=== PATIENT | female | born 1945 | race Caucasian/White ===

== ENCOUNTER → 2020-01-01 14:18 | Outpatient (CLI) | payer MEDICARE, OTHER, SELFPAY ==
--- NOTE | ~2020-01-01 | MM_ITS ---
EXAMINATION: MM screening taov BI w milton HISTORY: Screening mammogram TECHNIQUE: Craniocaudal and mediolateral oblique 3-D tomosynthesis images were obtained and synthetic 2-D images were generated. CAD analysis was submitted and interpreted. COMPARISON: No prior mammogram is available for comparison at this institution. BREAST PARENCHYMAL COMPOSITION: There are scattered areas of fibroglandular density. FINDINGS: There are scattered benign calcifications bilaterally. There is no evidence of suspicious m ass, calcification, or architectural distortion to suggest malignancy in either breast. There has bee n no suspicious interval change. IMPRESSION: 1. No mammographic evidence of malignancy. 2. Recommend routine screening mammography in one year. BI-RADS Category 2: Benign finding(s). Reviewed, dictated and finalized at location A.
== END ==
PROVIDERS: PCP Family Medicine; Visit Provider Obstetrics & Gynecology
DX: Z12.31 Encounter for screening mammogram for malignant neoplasm of breast (principal)
CPT/HCPCS: 77063; 77067

== ENCOUNTER → 2020-11-25 09:12 | Outpatient (CLI) | payer MEDICARE, OTHER, SELFPAY ==
[2020-11-25 22:41] LABS: SARS-CoV-2 RNA PCR Negative
== END ==
PROVIDERS: PCP Family Medicine; Visit Provider Family Medicine
DX: R68.89 Other general symptoms and signs (principal); Z20.822 Contact with and (suspected) exposure to COVID-19
CPT/HCPCS: C9803; U0003; U0005

== ENCOUNTER → 2021-02-16 10:18 | Outpatient (CLI) | payer MEDICARE, OTHER, SELFPAY ==
--- NOTE | ~2021-02-16 | MM_ITS ---
EXAMINATION: MM screening tavo BI w milton HISTORY: Screening TECHNIQUE: Craniocaudal and mediolateral oblique 3-D tomosynthesis images were obtained and synthetic 2-D images were generated. CAD analysis was submitted and interpreted. COMPARISON: Comparison to multiple prior studies sequentially, with oldest reviewed study dated 11/2013. BREAST PARENCHYMAL COMPOSITION: There are scattered areas of fibroglandular density. FINDINGS: There is no evidence of suspicious mass, calcification, or architectural distortion to sugg est malignancy in either breast. There has been no suspicious interval change. IMPRESSION: 1. No mammographic evidence of malignancy. 2. Recommend routine screening mammography in one year. BI-RADS Category 1: Negative Reviewed, dictated and finalized at location A. R RETORT
== END ==
PROVIDERS: PCP Nurse Practitioner Family; Visit Provider Obstetrics & Gynecology
DX: Z12.31 Encounter for screening mammogram for malignant neoplasm of breast (principal)
CPT/HCPCS: 77063; 77067

== ENCOUNTER 2021-12-07 09:32 | Outpatient (CLI) | payer MEDICARE, OTHER, SELFPAY ==
[2021-12-07 19:58] LABS: Alanine Aminotransferase 20 U/L (6-35); Albumin Level 4.5 g/dL (3.5-5.1); Alkaline Phosphatase 86 U/L (38-126); Anion Gap 12 mmol/L (8-16); Aspartate Amino Transferase 60 U/L (14-36); Bilirubin,Total 0.5 mg/dL (0.2-1.3); Blood Urea Nitrogen 14 mg/dL (7-17); Calcium 9.3 mg/dL (8.4-10.2); Carbon Dioxide 27 mmol/L (22-30); Chloride 99 mmol/L (98-107); Cholesterol 203 mg/dL (0-200); Estimated Glomerular Filt Rate > 60; Glucose 87 mg/dL (65-110); HDL Direct 99 mg/dL; Potassium 4.3 mmol/L (3.4-5.0); Sodium 138 mmol/L (137-145); Triglycerides 56 mg/dL (<150)
[2021-12-07 20:09] LABS: LDL Cholesterol Direct 79 mg/dL
[2021-12-07 20:19] LABS: Basophils Absolute Auto 0.1 K/mm3 (0.0-0.1); Basophils Percent Auto 1.3 % (0.2-1.2); Eosinophils Absolute Auto 0.4 K/mm3 (0-0.3); Eosinophils Percent Auto 6.8 % (0-4.4); Hematocrit 38.1 % (37.0-47.0); Hemoglobin 12.4 g/dL (12.0-15.0); Immature Granulocyte Absolute 0.01 K/mm3 (0.00-0.031); Immature Granulocyte Percent A 0.2 % (0-0.5); Lymphocytes Percent Auto 34.9 % (18.3-44.2); Mean Corpuscular HGB Conc 32.5 g/dl (32-36); Mean Corpuscular Hemoglobin 31.2 pg (26-34); Mean Corpuscular Volume 95.7 fl (80-100); Mean Platelet Volume 10.2 fl (7.4-10.4); Monocytes Absolute Auto 0.8 K/mm3 (0.1-0.6); Monocytes Percent Auto 13.1 % (2.6-8.5); Neutrophils Absolute Auto 2.6 K/mm3 (1.3-6.7); Neutrophils Percent Auto 43.7 % (45.5-73.1); Platelet Count Result 221 k/mm3 (150-375); Red Blood Count 3.98 M/mm3 (4.2-5.4); Red Cell Distribution Width 13.1 % (11.5-14.5)
[2021-12-07 20:27] LABS: Vitamin D 25 Hydroxy 35.6 ng/mL
== END 2021-12-07 09:33 | disposition home or self-care (01) ==
LOC: ANHGOSHLAB 09:38
PROVIDERS: PCP Family Medicine; Visit Provider Nurse Practitioner Family
DX: I10 Essential (primary) hypertension (principal); E78.5 Hyperlipidemia, unspecified; E03.9 Hypothyroidism, unspecified; E55.9 Vitamin D deficiency, unspecified
CPT/HCPCS: 36415; 80053; 80061; 82306; 84443; 85025

== ENCOUNTER 2022-01-20 01:18 | Day surgery (SDC) | payer MEDICARE, OTHER, SELFPAY ==
[2022-01-11 14:18] VITALS: BMI 27.6
--- NOTE | 2022-01-19 14:43 | PM.HPGS ---
History of Present Illness History of Present Illness Consent: Risks, benefits, and alternatives have been discussed and questions answered. Patient agrees to proceed with procedure. Chief complaint: Hx of colon polyps Narrative: Ai Pisano is a 76 year old female Who was referred for colon cancer screening. She had 2 adenomatous polyps removed about 10 years ago. Her last exam 5 years ago was negative. Review of Systems Review of Systems: All systems reviewed & are unremarkable except as noted in HPI and below PMFSH Past Medical History Medical History Essential (primary) hypertension Hx of colonic polyp Hyperlipidemia LDL goal <100 Hypothyroidism (acquired) Vitamin D deficiency Surgical History Surgical History No history of previous surgery Family History Family History Father Hypertension Other Family history of coronary artery disease Social History Social History Smoking status: Never smoker Alcohol intake: current Drinks per week: 7 Substance use: never Substance use type: does not use Living arrangements: with family Additional living arrangements comments: Gender identity (if verbalized by the patient): Female Spiritual care concerns: No Meds Home Medications and Allergies Home Medications Medication Instructions Recorded Confirmed Type calcium carbonate 600 mg calcium 600 mg PO DAILY 11/27/19 01/11/22 History (1,500 mg) tablet (Calcium) lisinopril 10 mg tablet 10 mg PO DAILY #90 tabs 05/17/21 01/11/22 Rx simvastatin 20 mg tablet 20 mg PO QPM #90 tabs 10/13/21 01/11/22 Rx levothyroxine 50 mcg tablet 50 mcg PO DAILY #90 tabs 11/22/21 01/11/22 Rx Allergies Allergy/AdvReac Type Severity Reaction Status Date / Time No Known Allergies Allergy Verified 01/20/22 09:57 Exam Const: General: alert Orientation/consciousness: patient oriented x3 Resp: Auscultation: clear to auscultation bilaterally Cardio: Rhythm: regular rhythm GI: GI Palp: Yes Soft to palpation and No Tenderness to palpation present (GI) Neuro: General: patient oriented x3 Assessment and Plan Assessment and plan (1) Colon cancer screening: Code(s): Z12.11 - Encounter for screening for malignant neoplasm of colon Status: Acute Assessment and Plan: Colonoscopy with possible biopsy or polypectomy or cautery or injection of substances.
[2022-01-20 09:58] VITALS: BP 126/84; PULSE 70; RESP 18; TEMP 36.3; O2SAT 100
[2022-01-20] MEDS: LACTATED RINGERS 1,000 ML 150 ML IV CONT (10:09)
--- NOTE | 2022-01-20 10:59 | WPDANESEPPF ---
Anes - Initial Pre Proc Eval Procedure: Operation Date: 01/20/22 11:15 Proposed Procedures p Screening Colonoscopy - Sriram Schmidt MD Date/Time: 01/20/22 10:59 Surgeon: Sriram Schmidt MD Pre Op Diagnosis: Hx of colon polyps Patient Data Age: 76 Gender: F Height: 1.63 m Weight: 74.6 kg Last Vital Signs Temp 97.4 F L 01/20/22 09:58 Pulse 70 01/20/22 09:58 Resp 18 01/20/22 09:58 BP 126/84 01/20/22 09:58 Pulse Ox 100 01/20/22 09:58 O2 Del Method Room Air 01/20/22 09:58 Allergies Allergy/AdvReac Type Severity Reaction Status Date / Time No Known Allergies Allergy Verified 01/20/22 09:57 Home Medications Medication Instructions Recorded Confirmed Type calcium carbonate 600 mg calcium 600 mg PO DAILY 11/27/19 01/11/22 History (1,500 mg) tablet (Calcium) lisinopril 10 mg tablet 10 mg PO DAILY #90 tabs 05/17/21 01/11/22 Rx simvastatin 20 mg tablet 20 mg PO QPM #90 tabs 10/13/21 01/11/22 Rx levothyroxine 50 mcg tablet 50 mcg PO DAILY #90 tabs 11/22/21 01/11/22 Rx Patient hx anesthesia problems: none Family hx anesthesia problems: none Results Review: All pre-operative results and documents have been reviewed as part of the pre-operative evaluation. [facility] Past Medical History Medical History (Updated 01/19/22 @ 14:43 by Sriram Schmidt MD) Essential (primary) hypertension Hx of colonic polyp Hyperlipidemia LDL goal <100 Hypothyroidism (acquired) Vitamin D deficiency Surgical History Surgical History No history of previous surgery Family History Family History Father Hypertension Other Family history of coronary artery disease Social History Social History Smoking status: Never smoker Alcohol intake: current Drinks per week: 7 Substance use: never Substance use type: does not use Living arrangements: with family Additional living arrangements comments: Gender identity (if verbalized by the patient): Female Spiritual care concerns: No Anes - Eval Final PreProcedure Day of Procedure 01/20/22 10:59 Patient weight: normal Heart: regular rate and rhythm Lungs: clear to auscultation Airway: Mallampati scale class II Neurological: alert and oriented Last oral intake: >/= 8 hours ASA classification: II Emergent: no Anesthetic plan: proceed Anesthesia type and monitoring: general GIVS and standard monitoring Results Review: All pre-operative results and documents have been reviewed as part of the pre-operative evaluation. Informed Consent: The patient's anesthetic plan and its attendant risks and benefits were discussed with the patient/family/POA. Questions were solicited and answers provided to the satisfaction of the patient/family/POA.
[2022-01-20 11:21] VITALS: BP 128/92; PULSE 67; RESP 18; O2SAT 100
[2022-01-20 11:31] VITALS: BP 108/68; PULSE 63; RESP 17; O2SAT 100
[2022-01-20 11:41] VITALS: BP 118/74; PULSE 69; RESP 21; O2SAT 100
== END 2022-01-20 11:53 | disposition home or self-care (01) ==
PROVIDERS: PCP Family Medicine; Visit Provider Internal Medicine Gastroenterology
PROC: 0DJD8ZZ Inspection of Lower Intestinal Tract, Via Natural or Artificial Opening Endoscopic (ICD-10-PCS; CPT 45378; principal; 2022-01-20 11:15)
DX: Z12.11 Encounter for screening for malignant neoplasm of colon (principal); K57.30 Diverticulosis of large intestine without perforation or abscess without bleeding; Z86.010 Personal history of colon polyps; I10 Essential (primary) hypertension; E78.5 Hyperlipidemia, unspecified; E03.9 Hypothyroidism, unspecified; E55.9 Vitamin D deficiency, unspecified
CPT/HCPCS: G0105; J2704; J7120

== ENCOUNTER → 2022-04-05 10:39 | Outpatient (CLI) | payer MEDICARE, OTHER, SELFPAY ==
--- NOTE | ~2022-04-05 | MM_ITS ---
EXAMINATION: MM screening tavo BI w milton HISTORY: Screening mammogram TECHNIQUE: Craniocaudal and mediolateral oblique 3-D tomosynthesis images were obtained and synthetic 2-D images were generated. CAD analysis was submitted and interpreted. COMPARISON: 02/16/2021, 01/01/2020, 10/23/2018 bilateral screening mammogram examinations BREAST PARENCHYMAL COMPOSITION: There are scattered areas of fibroglandular density. FINDINGS: Scattered bilateral benign calcifications. There is no evidence of suspicious mass, calcifi cation, or architectural distortion to suggest malignancy in either breast. There has been no suspici ous interval change. IMPRESSION: 1. No mammographic evidence of malignancy. 2. Recommend routine screening mammography in one year. BI-RADS Category 2: Benign finding(s). Reviewed, dictated and finalized at location A. TRUCTION MGR
== END ==
PROVIDERS: PCP Family Medicine; Visit Provider Obstetrics & Gynecology
DX: Z12.31 Encounter for screening mammogram for malignant neoplasm of breast (principal)
CPT/HCPCS: 77063; 77067

== ENCOUNTER 2022-05-18 07:57 | Day surgery (SDC) | payer MEDICARE, OTHER, SELFPAY ==
[2022-05-16 12:16] VITALS: BMI 28.3
--- NOTE | 2022-05-18 07:26 | WPDHPUPDATE1 ---
History and Physical Update Update Date/Time: 05/18/22 07:26 History and Physical has been reviewed, including an updated exam of the patient. There are NO changes in the patient's condition. Risks, benefits, and alternatives have been discussed and questions answered. Patient agrees to proceed with procedure.
--- NOTE | 2022-05-18 08:34 | P.PNAN_ITS ---
Anes - Initial Pre Proc Eval Procedure: Operation Date: 05/18/22 09:10 Proposed Procedures p Cataract Extraction with Lens Implant-Left Eye - Jay Parra MD Date/Time: 05/18/22 08:34 Surgeon: Jay Parra MD Pre Op Diagnosis: Cataract Left Eye Patient Data Age: 77 Gender: F Height: 1.63 m Weight: 75 kg Allergies Allergy/AdvReac Type Severity Reaction Status Date / Time No Known Allergies Allergy Verified 05/16/22 12:22 Home Medications Medication Instructions Recorded Confirmed Type calcium carbonate 600 mg calcium 600 mg PO DAILY 11/27/19 05/16/22 History (1,500 mg) tablet (Calcium) simvastatin 20 mg tablet 20 mg PO QPM #90 tabs 10/13/21 05/16/22 Rx lisinopril 10 mg tablet 10 mg PO DAILY #90 tabs 02/09/22 05/16/22 Rx levothyroxine 50 mcg tablet 50 mcg PO DAILY #30 tabs 05/16/22 Rx Patient hx anesthesia problems: none Family hx anesthesia problems: none Results Review: All pre-operative results and documents have been reviewed as part of the pre- operative evaluation. [facility] Past Medical History Medical History Essential (primary) hypertension Hx of colonic polyp Hyperlipidemia LDL goal <100 Hypothyroidism (acquired) Vitamin D deficiency Surgical History Surgical History No history of previous surgery Family History Family History Father Hypertension Other Family history of coronary artery disease Social History Social History Smoking status: Never smoker Second hand tobacco smoke exposure: No Alcohol intake: current Drinks per week: 7 Alcohol use details: 1 drink per night Substance use: never Substance use type: does not use Living arrangements: with family Additional living arrangements comments: Occupation/Education: retired Gender identity (if verbalized by the patient): Female Spiritual care concerns: No Anes - Eval Final PreProcedure Day of Procedure 05/18/22 08:34 Patient weight: overweight Heart: regular rate and rhythm Lungs: clear to auscultation Airway: Mallampati scale class II Neurological: alert and oriented Last oral intake: >/= 8 hours ASA classification: II Emergent: no Anesthetic plan: proceed Anesthesia type and monitoring: monitored anesthesia care and standard monitoring Results Review: All pre-operative results and documents have been reviewed as part of the pre- operative evaluation. Informed Consent: The patient's anesthetic plan and its attendant risks and benefits were discussed with the patient/family/POA. Questions were solicited and answers provided to the satisfaction of the patient/family/POA.
[2022-05-18] MEDS: OFLOXACIN 0.3% OPHTH SOLN 5 ML BTL 1 DROP AFFCTD EYE (08:35)
[2022-05-18] MEDS: TETRACAINE HCL 0.5% OPHTH SOLN 4 ML BTL 1 DROP AFFCTD EYE ×3 (08:35→08:45)
[2022-05-18] MEDS: LIDOCAINE HCL 2% JELLY 5 ML TUBE 1 APPLIC AFFCTD EYE (09:28)
[2022-05-18] MEDS: NEOMYCIN/POLYMYXIN/DEXAMETH OP OINT 3.5 GM TUBE 1 APPLIC AFFCTD EYE (09:40)
[2022-05-18] MEDS: HOME MEDICATION 1 EACH AFFCTD EYE (09:40)
[2022-05-18] MEDS: LIDOCAINE HCL 1% PF INJ 5 ML VIAL 1 ML INTRAOCULA (09:40)
[2022-05-18 09:52] VITALS: BP 127/71; PULSE 63; RESP 15; O2SAT 100
[2022-05-18 09:56] VITALS: BP 126/63; PULSE 72; RESP 20; TEMP 36.8; O2SAT 100
[2022-05-18] MEDS: acetaZOLAMIDE TAB 250 MG TABLET PO (09:59)
--- NOTE | 2022-05-18 11:38 | W.PM.PROC2 ---
Procedure Note - Detailed Date of Procedure 05/18/22 Pre-op Diagnosis Cataract Left Eye Post-op Diagnosis Same Procedure Performed Cataract Extraction (by Phacoemulsification) and lntraocular Lens Implant Surgeon Jay Parra MD Anesthesia MAC Description of Procedure The eye was anesthetized with topical 0.75% bupivacaine. After intravenous sedation and placement of monitors, the patient was prepped and draped in the usual sterile manner. A lid speculum was placed. A paracentesis was made, and preservative free 1% lidocaine was instilled in the anterior chamber. The anterior chamber was then filled with Viscoat viscoelastic. A dl keratome was used to create the wound. Continuous tear anterior capsulotomy was performed. The lens was hydro dissected before being removed with phacoemulsification. The remaining lenticular cortex was removed with aspiration. The capsular bag was polished and filled with viscoelastic material. An intraocular lens was chosen, inspected, irrigated and placed within the capsular bag where it was seen to be centered and stable. The viscoelastic material was aspirated. The wound was closed and found to be watertight. Ciloxan drops were placed in the eye. The speculum was removed. A Reddy shield was applied. The patient tolerated the procedure well and left the operating room in satisfactory condition. Implants See chart Complications None Condition Stable Disposition Same day
--- NOTE | 2022-05-18 11:46 | WPDANESPN ---
Anes - Prog Note Post-Op Date/Time: 05/18/22 11:46 Cardiovascular status: normal Respiratory status: normal Airway patency: baseline Mental status: baseline Post-Op hydration status: normal Vital Signs: Last Vital Signs Temp 36.8 C 05/18/22 09:56 Pulse 72 05/18/22 09:56 Resp 20 05/18/22 09:56 BP 126/63 05/18/22 09:56 Pulse Ox 100 05/18/22 09:56 O2 Del Method Room Air 05/18/22 09:56 Pain Score (VAS): 0 Post-procedural complaints: none Patient Feedback: Patient satisfied with anesthetic care.
== END 2022-05-18 10:12 | disposition home or self-care (01) ==
PROVIDERS: PCP Family Medicine; Visit Provider Student in an Organized Health Care Education/Training Program
PROC: (CPT 66983; principal; 2022-05-18 09:10)
DX: H25.12 Age-related nuclear cataract, left eye (principal)
CPT/HCPCS: 66984

== ENCOUNTER 2022-06-10 08:45 | Outpatient (CLI) | payer MEDICARE, OTHER, SELFPAY ==
[2022-06-10 18:40] LABS: Basophils Absolute Auto 0.1 K/mm3 (0.0-0.1); Basophils Percent Auto 1.1 % (0.2-1.2); Eosinophils Absolute Auto 0.6 K/mm3 (0-0.3); Eosinophils Percent Auto 9.5 % (0-4.4); Hematocrit 37.7 % (37.0-47.0); Hemoglobin 12.4 g/dL (12.0-15.0); Immature Granulocyte Absolute 0.02 K/mm3 (0.00-0.031); Immature Granulocyte Percent A 0.3 % (0-0.5); Lymphocytes Absolute Auto 2.11 K/mm3 (0.9-3.2); Lymphocytes Percent Auto 33.4 % (18.3-44.2); Mean Corpuscular HGB Conc 32.9 g/dl (32-36); Mean Corpuscular Hemoglobin 31.9 pg (26-34); Mean Corpuscular Volume 96.9 fl (80-100); Mean Platelet Volume 9.9 fl (7.4-10.4); Monocytes Absolute Auto 0.8 K/mm3 (0.1-0.6); Neutrophils Absolute Auto 2.8 K/mm3 (1.3-6.7); Neutrophils Percent Auto 43.7 % (45.5-73.1); Platelet Count Result 231 k/mm3 (150-375); Red Blood Count 3.89 M/mm3 (4.2-5.4); Red Cell Distribution Width 13.2 % (11.5-14.5); White Blood Count 6.3 K/mm3 (4.5-10.0)
[2022-06-10 21:32] LABS: LDL Cholesterol Direct 66 mg/dL
[2022-06-10 21:33] LABS: Alanine Aminotransferase 20 U/L (6-35); Albumin Level 4.7 g/dL (3.5-5.1); Alkaline Phosphatase 89 U/L (38-126); Anion Gap 11 mmol/L (8-16); Aspartate Amino Transferase 28 U/L (14-36); Bilirubin,Total 0.4 mg/dL (0.2-1.3); Blood Urea Nitrogen 23 mg/dL (7-17); Calcium 9.7 mg/dL (8.4-10.2); Carbon Dioxide 25 mmol/L (22-30); Chloride 102 mmol/L (98-107); Cholesterol 212 mg/dL (0-200); Estimated Glomerular Filt Rate > 60; Glucose 72 mg/dL (65-110); Potassium 5.1 mmol/L (3.4-5.0); Sodium 138 mmol/L (137-145); Triglycerides 80 mg/dL (<150)
[2022-06-10 21:53] LABS: HDL Direct 118 mg/dL
== END 2022-06-10 08:46 | disposition home or self-care (01) ==
LOC: ANHGOSHLAB 08:46
PROVIDERS: PCP Family Medicine; Visit Provider Nurse Practitioner Family
DX: E78.5 Hyperlipidemia, unspecified (principal); I10 Essential (primary) hypertension; E03.9 Hypothyroidism, unspecified
CPT/HCPCS: 36415; 80053; 80061; 84443; 85025

== ENCOUNTER 2022-12-15 08:32 | Outpatient (CLI) | payer MEDICARE, OTHER, SELFPAY ==
[2022-12-15 18:33] LABS: Basophils Absolute Auto 0.1 K/mm3 (0.0-0.1); Eosinophils Absolute Auto 0.4 K/mm3 (0-0.3); Eosinophils Percent Auto 8.5 % (0-4.4); Hematocrit 38.3 % (37.0-47.0); Hemoglobin 12.7 g/dL (12.0-15.0); Immature Granulocyte Absolute 0.02 K/mm3 (0.00-0.031); Immature Granulocyte Percent A 0.4 % (0-0.5); Lymphocytes Absolute Auto 1.62 K/mm3 (0.9-3.2); Lymphocytes Percent Auto 32.7 % (18.3-44.2); Mean Corpuscular HGB Conc 33.2 g/dl (32-36); Mean Corpuscular Hemoglobin 31.4 pg (26-34); Mean Corpuscular Volume 94.8 fl (80-100); Mean Platelet Volume 10.3 fl (7.4-10.4); Monocytes Absolute Auto 0.6 K/mm3 (0.1-0.6); Monocytes Percent Auto 12.1 % (2.6-8.5); Neutrophils Absolute Auto 2.2 K/mm3 (1.3-6.7); Neutrophils Percent Auto 45.3 % (45.5-73.1); Platelet Count Result 210 k/mm3 (150-375); Red Blood Count 4.04 M/mm3 (4.2-5.4); Red Cell Distribution Width 12.6 % (11.5-14.5)
[2022-12-15 18:43] LABS: Alanine Aminotransferase 19 U/L (6-35); Albumin Level 4.5 g/dL (3.5-5.1); Alkaline Phosphatase 80 U/L (38-126); Anion Gap 7 mmol/L (8-16); Aspartate Amino Transferase 37 U/L (14-36); Bilirubin,Total 0.7 mg/dL (0.2-1.3); Blood Urea Nitrogen 17 mg/dL (7-17); Calcium 9.2 mg/dL (8.4-10.2); Carbon Dioxide 29 mmol/L (22-30); Chloride 98 mmol/L (98-107); Cholesterol 196 mg/dL (0-200); Estimated Glomerular Filt Rate > 60; Glucose 89 mg/dL (65-110); HDL Direct 103 mg/dL; Potassium 4.3 mmol/L (3.4-5.0); Sodium 134 mmol/L (137-145); Triglycerides 78 mg/dL (<150)
[2022-12-15 19:02] LABS: Vitamin D 25 Hydroxy 31.1 ng/mL
[2022-12-15 19:09] LABS: LDL Cholesterol Direct 73 mg/dL
[2022-12-15 19:49] LABS: Hemoglobin A1C 4.9 % (<5.7)
== END 2022-12-15 08:33 | disposition home or self-care (01) ==
PROVIDERS: PCP Family Medicine; Visit Provider Nurse Practitioner Family
DX: E78.5 Hyperlipidemia, unspecified (principal); Z13.21 Encounter for screening for nutritional disorder; I10 Essential (primary) hypertension; Z13.220 Encounter for screening for lipoid disorders; Z13.29 Encounter for screening for other suspected endocrine disorder; R73.03 Prediabetes
CPT/HCPCS: 36415; 80053; 80061; 82306; 83036; 84443; 85025

== ENCOUNTER 2023-06-22 08:28 | Outpatient (CLI) | payer MEDICARE, OTHER, SELFPAY ==
[2023-06-22 12:13] LABS: Basophils Absolute Auto 0.1 K/mm3 (0.0-0.1); Basophils Percent Auto 0.9 % (0.2-1.2); Eosinophils Absolute Auto 0.5 K/mm3 (0-0.3); Eosinophils Percent Auto 9.6 % (0-4.4); Hematocrit 38.6 % (37.0-47.0); Hemoglobin 12.6 g/dL (12.0-15.0); Immature Granulocyte Absolute 0.01 K/mm3 (0.00-0.031); Immature Granulocyte Percent A 0.2 % (0-0.5); Lymphocytes Absolute Auto 1.96 K/mm3 (0.9-3.2); Lymphocytes Percent Auto 36.2 % (18.3-44.2); Mean Corpuscular HGB Conc 32.6 g/dl (32-36); Mean Corpuscular Hemoglobin 31.4 pg (26-34); Mean Corpuscular Volume 96.3 fl (80-100); Mean Platelet Volume 10.2 fl (7.4-10.4); Monocytes Absolute Auto 0.7 K/mm3 (0.1-0.6); Monocytes Percent Auto 12.8 % (2.6-8.5); Neutrophils Absolute Auto 2.2 K/mm3 (1.3-6.7); Neutrophils Percent Auto 40.3 % (45.5-73.1); Platelet Count Result 220 k/mm3 (150-375); Red Blood Count 4.01 M/mm3 (4.2-5.4); Red Cell Distribution Width 13.4 % (11.5-14.5); White Blood Count 5.4 K/mm3 (4.5-10.0)
[2023-06-22 12:24] LABS: Alanine Aminotransferase 18 U/L (6-35); Albumin Level 4.5 g/dL (3.5-5.1); Alkaline Phosphatase 77 U/L (38-126); Anion Gap 5 mmol/L (4-12); Aspartate Amino Transferase 40 U/L (14-36); Bilirubin,Total 0.6 mg/dL (0.2-1.3); Blood Urea Nitrogen 16 mg/dL (7-17); Calcium 9.5 mg/dL (8.4-10.2); Carbon Dioxide 29 mmol/L (22-30); Chloride 102 mmol/L (98-107); Cholesterol 178 mg/dL (0-200); Estimated Glomerular Filt Rate > 60; Glucose 90 mg/dL (65-110); HDL Direct 95 mg/dL; Potassium 4.8 mmol/L (3.4-5.0); Sodium 136 mmol/L (137-145); Triglycerides 87 mg/dL (<150)
[2023-06-22 12:35] LABS: LDL Cholesterol Direct 77 mg/dL
== END 2023-06-22 08:29 | disposition home or self-care (01) ==
LOC: ANHGOSHLAB 08:29
PROVIDERS: PCP Family Medicine; Visit Provider Nurse Practitioner Family
DX: E78.5 Hyperlipidemia, unspecified (principal); E03.9 Hypothyroidism, unspecified; I10 Essential (primary) hypertension; M85.80 Other specified disorders of bone density and structure, unspecified site; R74.01 Elevation of levels of liver transaminase levels; Z13.29 Encounter for screening for other suspected endocrine disorder; R73.03 Prediabetes
CPT/HCPCS: 36415; 80053; 80061; 83036; 84443; 85025

== ENCOUNTER 2023-08-09 14:11 | Outpatient (CLI) | payer MEDICARE, OTHER, SELFPAY ==
--- NOTE | ~2023-08-09 | MM_ITS ---
EXAMINATION: MM screening atvo BI w milton HISTORY: Screening TECHNIQUE: Craniocaudal and mediolateral oblique 3-D tomosynthesis images were obtained and synthetic 2-D images were generated. CAD analysis was submitted and interpreted. COMPARISON: Comparison to multiple prior studies sequentially, with oldest reviewed study dated 06/08. BREAST PARENCHYMAL COMPOSITION: Not dense: There are scattered areas of fibroglandular density. FINDINGS: There is no evidence of suspicious mass, calcification, or architectural distortion to sugg est malignancy in either breast. There has been no suspicious interval change. IMPRESSION: 1. No mammographic evidence of malignancy. 2. Recommend routine screening mammography in one year. BI-RADS Category 1: Negative Reviewed, dictated and finalized at location B.
== END 2023-08-09 14:12 ==
PROVIDERS: PCP Obstetrics & Gynecology; Visit Provider Nurse Practitioner Family
DX: Z12.31 Encounter for screening mammogram for malignant neoplasm of breast (principal)
CPT/HCPCS: 77063; 77067

== ENCOUNTER 2024-01-02 08:36 | Outpatient (CLI) | payer MEDICARE, OTHER, SELFPAY ==
[2024-01-02 13:08] LABS: Alanine Aminotransferase 22 U/L (6-35); Albumin Level 4.3 g/dL (3.5-5.1); Alkaline Phosphatase 71 U/L (38-126); Anion Gap 9 mmol/L (4-12); Aspartate Amino Transferase 44 U/L (14-36); Bilirubin,Total 0.6 mg/dL (0.2-1.3); Blood Urea Nitrogen 16 mg/dL (7-17); Calcium 9.3 mg/dL (8.4-10.2); Carbon Dioxide 27 mmol/L (22-30); Chloride 100 mmol/L (98-107); Cholesterol 187 mg/dL (0-200); Estimated Glomerular Filt Rate > 60; Glucose 89 mg/dL (65-110); HDL Direct 101 mg/dL; Potassium 4.7 mmol/L (3.4-5.0); Sodium 136 mmol/L (137-145); Triglycerides 70 mg/dL (<150)
[2024-01-02 13:20] LABS: LDL Cholesterol Direct 60 mg/dL
[2024-01-02 13:27] LABS: Basophils Percent Auto 0.7 % (0.2-1.2); Eosinophils Absolute Auto 0.4 K/mm3 (0-0.3); Eosinophils Percent Auto 7.9 % (0-4.4); Hematocrit 35.8 % (37.0-47.0); Hemoglobin 11.8 g/dL (12.0-15.0); Immature Granulocyte Absolute 0.02 K/mm3 (0.00-0.031); Immature Granulocyte Percent A 0.4 % (0-0.5); Lymphocytes Absolute Auto 2.02 K/mm3 (0.9-3.2); Lymphocytes Percent Auto 36.1 % (18.3-44.2); Mean Corpuscular Hemoglobin 32.3 pg (26-34); Mean Corpuscular Volume 98.1 fl (80-100); Mean Platelet Volume 10.4 fl (7.4-10.4); Monocytes Absolute Auto 0.7 K/mm3 (0.1-0.6); Neutrophils Absolute Auto 2.4 K/mm3 (1.3-6.7); Neutrophils Percent Auto 42.9 % (45.5-73.1); Platelet Count Result 204 k/mm3 (150-375); Red Blood Count 3.65 M/mm3 (4.2-5.4); Red Cell Distribution Width 12.9 % (11.5-14.5); White Blood Count 5.6 K/mm3 (4.5-10.0)
[2024-01-02 14:48] LABS: Free T4 Free Thyroxine 1.58 ng/mL (0.78-2.19); Vitamin D 25 Hydroxy 31.9 ng/mL
== END 2024-01-02 08:37 | disposition home or self-care (01) ==
LOC: ANHGOSHLAB 08:38
PROVIDERS: PCP Family Medicine; Visit Provider Nurse Practitioner Family
DX: E55.9 Vitamin D deficiency, unspecified (principal); E03.9 Hypothyroidism, unspecified; I10 Essential (primary) hypertension
CPT/HCPCS: 36415; 80053; 80061; 82306; 84439; 84443; 85025

== ENCOUNTER 2024-01-08 10:11 | Outpatient (CLI) | payer MEDICARE, OTHER, SELFPAY ==
[2024-01-08 14:36] LABS: Iron 81 ug/dL (37-170)
[2024-01-08 14:45] LABS: Percent Iron Saturation 32 % (20-50)
== END 2024-01-08 10:12 | disposition home or self-care (01) ==
LOC: ANHGOSHLAB 10:13
PROVIDERS: PCP Family Medicine; Visit Provider Nurse Practitioner Family
DX: D64.9 Anemia, unspecified (principal)
CPT/HCPCS: 36415; 82607; 82728; 83540; 83550

== ENCOUNTER 2024-04-01 10:02 | Outpatient (CLI) | payer MEDICARE, OTHER, SELFPAY ==
[2024-04-01 13:22] LABS: Hematocrit 38.8 % (37.0-47.0); Hemoglobin 12.5 g/dL (12.0-15.0); Mean Corpuscular HGB Conc 32.2 g/dl (32-36); Mean Corpuscular Hemoglobin 31.3 pg (26-34); Mean Platelet Volume 10.1 fl (7.4-10.4); Platelet Count Result 243 k/mm3 (150-375); Red Cell Distribution Width 12.6 % (11.5-14.5); White Blood Count 5.9 K/mm3 (4.5-10.0)
== END 2024-04-01 10:03 | disposition home or self-care (01) ==
LOC: ANHGOSHLAB 10:03
PROVIDERS: PCP Family Medicine; Visit Provider Nurse Practitioner Family
DX: D64.9 Anemia, unspecified (principal)
CPT/HCPCS: 36415; 82728; 85027

== ENCOUNTER 2024-07-02 14:25 | Outpatient (CLI) | payer MEDICARE, OTHER, SELFPAY ==
[2024-07-02 14:38] LABS: Basophils Absolute Auto 0.1 K/mm3 (0.0-0.1); Basophils Percent Auto 0.9 % (0.2-1.2); Eosinophils Absolute Auto 0.4 K/mm3 (0-0.3); Hematocrit 36.4 % (37.0-47.0); Hemoglobin 12.3 g/dL (12.0-15.0); Immature Granulocyte Absolute 0.03 K/mm3 (0.00-0.031); Immature Granulocyte Percent A 0.4 % (0-0.5); Lymphocytes Absolute Auto 2.45 K/mm3 (0.9-3.2); Lymphocytes Percent Auto 32.2 % (18.3-44.2); Mean Corpuscular HGB Conc 33.8 g/dl (32-36); Mean Corpuscular Hemoglobin 31.5 pg (26-34); Mean Corpuscular Volume 93.1 fl (80-100); Mean Platelet Volume 9.4 fl (7.4-10.4); Monocytes Absolute Auto 0.9 K/mm3 (0.1-0.6); Monocytes Percent Auto 11.7 % (2.6-8.5); Neutrophils Absolute Auto 3.8 K/mm3 (1.3-6.7); Neutrophils Percent Auto 49.8 % (45.5-73.1); Platelet Count Result 211 k/mm3 (150-375); Red Blood Count 3.91 M/mm3 (4.2-5.4); Red Cell Distribution Width 13.2 % (11.5-14.5); White Blood Count 7.6 K/mm3 (4.5-10.0)
[2024-07-02 16:30] LABS: Iron 112 ug/dL (37-170)
[2024-07-02 16:33] LABS: Alanine Aminotransferase 26 U/L (6-35); Albumin Level 4.8 g/dL (3.5-5.1); Alkaline Phosphatase 90 U/L (38-126); Anion Gap 8 mmol/L (4-12); Aspartate Amino Transferase 49 U/L (14-36); Bilirubin,Total 0.6 mg/dL (0.2-1.3); Blood Urea Nitrogen 13 mg/dL (7-17); Calcium 9.4 mg/dL (8.4-10.2); Carbon Dioxide 29 mmol/L (22-30); Chloride 98 mmol/L (98-107); Estimated Glomerular Filt Rate > 60; Glucose 100 mg/dL (65-110); Potassium 4.3 mmol/L (3.4-5.0); Sodium 135 mmol/L (137-145)
--- OUTSIDE RECORDS SUMMARY | 2024-07-02 16:40 | XMS_ITS | Clinical Summary ---
Author Organization [facility] Petre Address [address] [place] [address] Care Team Providers Care Plate Mill Mill Hand Name Role Phone Unavailable Primary Care Provider Unavailabl e Allergies No known active allergies Medications levothyroxine 50 mcg tablet Take 1 Tablet by mouth daily. 06/15/2024 Active lisinopriL (PRINIVIL) 10 mg tablet Take 1 Tablet by mouth daily. 06/15/2024 Active simvastatin (ZOCOR) 20 mg tablet Take 1 Tablet by mouth daily. 04/10/2024 Active Cholecalciferol, Vitamin D3, 50 mcg (2,000 unit) Capsule Take 50 mcg by mouth daily. Active calcium-vitamin D3-vitamin K (VIACTIV) 500 mg-100 unit -40 mcg Tablet, Chewable Take 1 Tablet by mouth daily. Active Encounters Date Type Department Care Team Description 07/02/2024 1:30 PM CDT Office Visit [facility] Oncology and Hematology - [address] [place] [address] Rajni Santos MD Elevated liver enzymes (Primary Dx); Anemia, chronic disease 07/02/2024 Orders Only [facility] [address] [place] [address] Mychal Wilcox MD from Last 3 Months Family History Medical History Relation Name Comments No Known Problems Brother Diabetes Child 1 No Known Problems Child 2 No Known Problems Father No Known Problems Mother No Known Problems Sister 1 No Known Problems Sister 2 No Known Problems Sister 3 No Known Problems Sister 4 Breast Cancer Sister 5 Relation Name Status Comments Brother Alive Child 1 Alive Child 2 Alive Father Mother Sister 1 Alive Sister 2 Alive Sister 3 Alive Sister 4 Alive Sister 5 Alive Social History Tobacco Use Types Packs/Day Years Used Date Smoking Tobacco: Never Smokeless Tobacco: Never Alcohol Use Standard Drinks/Week Comments Yes 0 (1 standard drink = 0.6 oz pur e alcohol) Everyday Comments Unknown Sex and Gender Information Value Date Recorded Sex Assigned at Not on file 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 Gender Identity Not on file Sexual Orientation Not on file Last Filed Vital Signs Vital Sign Reading Time Taken Comments Blood Pressure 138/79 07/02/2024 1:22 PM CDT Pulse 71 07/02/2024 1:20 PM CDT Temperature 36.2 C (97.1 F) 07/02/2024 1:20 PM CDT Respiratory Rate 16 07/02/2024 1:20 PM CDT Oxygen Saturation 98% 07/02/2024 1:20 PM CDT Inhaled Oxygen Concentration - - Weight 77.5 kg (170 lb 12.8 oz) 025 1:20 PM CDT Height 162.6 cm (5' 4 ) 07/02/2024 1:20 PM CDT Body Mass Index 29.32 07/02/2024 1:20 PM CDT Plan of Treatment Upcoming Encounters Date Type Department Care Team (Late st Contact Info) Description 08/27/2024 10:00 AM CDT Office Visit [facility] Hematology - [address] [facility] [address] [place] [address] Mychal Wilcox MD [address] [facility] [address] [place] [address] Health Maintenance Due Date Last Done Comments DTAP/TDAP/TD VACCINES (1 - Tdap) 1964 Traditional Medicare (ACO) Annual Wellness Visit 03/07 PNEUMOCOCCAL VACCINE 50+ YEARS (1 of 1 - PCV) 03/07/19 96 ZOSTER VACCINE (1 of 2) 1996 OSTEOPOROSIS SCREENING 2011 RSV VACCINE (60+ or ) (1 - 1-dose 75+ series) 2021 INFLUENZA VACCINE (#1) 2023 Procedures Procedure Name Priority Date/Time Associated Diagnosis Comments CBC MIXED CELL DIFFERENTIAL Routine 07/02/2024 3:55 PM CDT from Last 3 Months Results * CBC MIXED CELL DIFFERENTIAL (07/02/2024 3:55 PM CDT) Blood Mychal Wilcox MD HEMATOLOGY ORDERABLES Final Res ult from Last 3 Months Insurance MEDICARE PART A AND B [facility]
--- OUTSIDE RECORDS SUMMARY | 2024-07-02 16:40 | XMS_ITS | Encounter Summary ---
Author Organization [facility] [employer] [facility] Address [address] [place] [address] Care Team Providers Care Cognos Name Role Phone Unavailable Primary Care Provider Unavailabl e Encounter Details Date Type Department Care Team ([facility] Contact Info) Description 07/02/2024 Orders Only [facility] Oncology [facility] [address] [place] [address] Mychal Wilcox MD [facility] [address] [place] [phone] Social History Tobacco Use Types Packs/Day Years Used Date Smoking Tobacco: Never Smokeless Tobacco: Never Alcohol Use Standard Drinks/Week Comments Yes 0 (1 standard drink = 0.6 oz pur e alcohol) Everyday Comments Unknown Sex and Gender Information Value Date Recorded Sex Assigned at Not on file 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 Gender Identity Not on file Sexual Orientation Not on file documented as of this encounter Plan of Treatment Upcoming Encounters Date Type Department Care Team (Late Contact Info) Description 08/27/2024 10:00 AM CDT Office Visit [facility] Oncology [facility] [address] [place] [address] Mychal Wilcox MD [address] [place], [place] [address]Life With [facility] [address] [place] [phone] documented as of this encounter Procedures Procedure Name Priority Date/Time Associated Diagnosis Comments CBC MIXED CELL DIFFERENTIAL Routine 07/02/2024 3:55 PM CDT documented in this encounter Results * CBC MIXED CELL DIFFERENTIAL (07/02/2024 3:55 PM CDT) Blood us Mychal Wilcox MD HEMATOLOGY ORDERABLES Final Res ult documented in this encounter Visit Diagnoses Not on filedocumented in this encounter
--- OUTSIDE RECORDS SUMMARY | 2024-07-02 16:40 | XMS_ITS | Encounter Summary ---
Author Organization [facility] JEANNE Meneses [facility] Address [address] [place] [address] Care Team Providers Care Line Assembler Name Role Phone Unavailable Primary Care Provider Unavailabl e Reason for Referral * CT Scan (Routine) - Open Specialty Diagnoses / Procedures Referred By Annabel torres Referred To Contact Diagnoses Elevated liver enzymes Procedures CT ABDOMEN PELVIS W CONTRAST Rajni Santos MD [address] [place] [address] Phone: tel: fax: Referral ID Status Reason Start Date Expiration Date Visits Re quested Visits Authorized [id number] Open 07/02/2024 08/02/2025 1 1 Encounter Details Date Type Department Care Team (Late st Contact Info) Description 07/02/2024 1:30 PM CDT Office Visit [facility] Oncology and Hematology - [address] [place] [address] Rajni Santos MD [address] [place] [address] Elevated liver enzymes (Primary Dx); Anemia, chronic disease Social History Tobacco Use Types Packs/Day Years Used Date Smoking Tobacco: Never Smokeless Tobacco: Never Alcohol Use Standard Drinks/Week Comments Yes 0 (1 standard drink = 0.6 oz pur e alcohol) Everyday Comments Unknown Sex and Gender Information Value Date Recorded Sex Assigned at Not on file 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 Gender Identity Not on file Sexual Orientation Not on file documented as of this encounter Last Filed Vital Signs Vital Sign Reading Time Taken Comments Blood Pressure 138/79 07/02/2024 1:22 PM CDT Pulse 71 07/02/2024 1:20 PM CDT Temperature 36.2 C (97.1 F) 07/02/2024 1:20 PM CDT Respiratory Rate 16 07/02/2024 1:20 PM CDT Oxygen Saturation 98% 07/02/2024 1:20 PM CDT Inhaled Oxygen Concentration - - Weight 77.5 kg (170 lb 12.8 oz) 07/02/2024 1:20 PM CDT Height 162.6 cm (5' 4 ) 07/02/2024 1:20 PM CDT Body Mass Index 29.32 07/02/2024 1:20 PM CDT documented in this encounter Plan of Treatment Upcoming Encounters Date Type Department Care Team (Late st Contact Info) Description 08/27/2024 10:00 AM CDT Office Visit [facility] Oncology and Hematology - [place] [address] [place] [address] [address] [place] [phone] Mychal Wilcox MD [address] [facility] [address] [place] [address] Scheduled Orders Name Type Priority Associated Diagnoses Orde r Schedule COMPREHENSIVE METABOLIC PANEL Lab Routine Anemia, chronic disease Expected: 07/02/2024, Expires: 07/02/2025 CBC WITH DIFFERENTIAL Lab Routine Anemia, chronic disease Expected: 07/02/2024, Expires: 07/02/2025 IRON, TIBC, AND PERCENT SATURATION Lab Routine Anemia, chronic disease Expected: 07/02/2024, Expires: 07/02/2025 FERRITIN Lab Routine Anemia, chronic disease Expected: 07/02/2024, Expires: 07/02/2025 VITAMIN B12 AND FOLATE Lab Routine Anemia, chronic disease Expected: 07/02/2024, Expires: 07/02/2025 CT ABDOMEN PELVIS W CONTRAST Imaging Routine Elevated liver enzymes Expected: 07/02/2024, Expires: 07/02/2025 documented as of this encounter Visit Diagnoses Diagnosis Elevated liver enzymes- Primary Nonspecific elevation of levels of transaminase or lactic acid dehydrogenase (LDH) Anemia, chronic disease Anemia of other chronic disease documented in this encounter
[2024-07-02 16:43] LABS: Percent Iron Saturation 39 % (20-50)
[2024-07-02 17:41] LABS: Folic Acid 12.7 ng/mL (2.76->20)
== END 2024-07-02 14:26 | disposition home or self-care (01) ==
LOC: ANHLAB 14:26
PROVIDERS: PCP Family Medicine; Visit Provider Internal Medicine Hematology & Oncology
DX: D64.9 Anemia, unspecified (principal)
CPT/HCPCS: 36415; 80053; 82607; 82728; 82746; 83540; 83550; 85025

== ENCOUNTER 2024-08-13 10:27 | Outpatient (CLI) | payer MEDICARE, OTHER, SELFPAY ==
--- NOTE | ~2024-08-13 | MM_ITS ---
PROCEDURE: MM SCREENING [facility] BI W PATRICIA INDICATION: Asymptomatic, referred for screening mammogram COMPARISON: 08/09/2023 through 01/01/2020 TECHNIQUE: Digital breast tomosynthesis craniocaudal and mediolateral oblique views of Both breasts w ere obtained with computer-aided detection to assist in interpretation of the study. FINDINGS: The breasts are almost entirely fatty. No focal dominant mass, architectural distortion, or suspicious microcalcifications are identified. There are no features to suggest malignancy. IMPRESSION: No evidence of malignancy in the breast. Recommend continued screening mammography BI-RADS 1, NEGATIVE Reviewed, dictated and finalized at location B.
== END 2024-08-13 10:28 | disposition home or self-care (01) ==
PROVIDERS: PCP Obstetrics & Gynecology; Visit Provider Nurse Practitioner Family
DX: Z12.31 Encounter for screening mammogram for malignant neoplasm of breast (principal)
CPT/HCPCS: 77063; 77067

== ENCOUNTER 2024-08-20 08:51 | Outpatient (CLI) | payer MEDICARE, OTHER, SELFPAY ==
--- NOTE | ~2024-08-20 | CT_ITS ---
CT of the Abdomen and Pelvis: Indication: Elevated liver enzymes Technique: 2.5 mm axial scans were obtained through the abdomen and pelvis following intravenous adm inistration of 100 cc of Omnipaque 350. Dose reduction technique was used on this scan by utilizing a utomated exposure control and iterative reconstruction technique. The dose-length product (DLP) was 4 32.39 mGy-cm. Findings: Scans through the lung bases are unremarkable. Possible fatty infiltration of liver. The spleen, pancreas, gallbladder, adrenals and kidneys are wit hin normal limits. No evidence of aortic aneurysm. No lymphadenopathy. No bowel obstruction or bowel wall thickening. There is no evidence to suggest acute appendicitis. Images through the pelvis were performed. Urinary bladder unremarkable. No pelvic mass seen. No ascit es. Impression: Possible mild fatty infiltration of liver. Reviewed, dictated and finalized at location . Impression: Possible mild fatty infiltration of liver.
--- OUTSIDE RECORDS SUMMARY | 2024-08-20 09:15 | XMS_ITS | Clinical Summary ---
Author Organization [facility] Aftab bucio Peter Address [address] [place] [address] Care Team Providers Care Baker Pastry Name Role Phone Unavailable Primary Care Provider [...] Take 1 Tablet by mouth daily. Active Active Problems No known active problems Encounters Date Type Department Care Team Description 08/01/2024 External Device Data STL ABSTRACTION Provider, Abstract 07/31/2024 External Device Data STL ABSTRACTION Provider, Abstract 07/30/2024 External Device Data STL ABSTRACTION Provider, Abstract 07/09/2024 External Device Data STL ABSTRACTION Provider, Abstract 07/09/2024 External Device Data STL ABSTRACTION Provider, Abstract 07/09/2024 External Device Data STL ABSTRACTION Provider, Abstract 07/03/2024 Orders Only [facility] Oncology and Hematology [facility] [address] [place] [address] Mychal Wilcox MD 07/02/2024 1:30 PM CDT Office Visit [facility] Oncology and Hematology [facility] [address] [place] [phone] Rajni Santos MD Elevated liver enzymes (Primary Dx); Anemia, chronic disease 07/02/2024 Orders Only [facility] Oncology and Hematology - [place] [address] [place] [address] Mychal Wilcox MD from Last [...] on file 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 Gender Identity Not on file Sexual [...] 1:20 PM CDT Height 162.6 cm (5' 4) 07/02/2024 1:20 PM CDT Body Mass Index 29.32 07/02/2024 1:20 PM CDT Plan of Treatment Upcoming Encounters Date Type Department Care Team (Late st Contact Info) Description 08/27/2024 10:00 AM CDT Office Visit [facility] Oncology and Hematology - [place] [address] [place] [phone] Mychal Wilcox MD [address] [facility] [address] [place] [address] Health Maintenance Due Date Last Done Comments DTAP/TDAP/TD VACCINES (1 - Tdap) 1965 PNEUMOCOCCAL VACCINE 50+ YEARS (1 of 1 - PCV) 03/07/19 96 ZOSTER VACCINE (1 of 2) 1996 OSTEOPOROSIS SCREENING 2011 RSV VACCINE (60+ or ) (1 - 1-dose 75+ series) 2021 INFLUENZA VACCINE (#1) 2023 Procedures Procedure Name Priority Date/Time Associated Diagnosis Comments CBC MIXED CELL DIFFERENTIAL Routine 07/02/2024 3:55 PM CDT COMPREHENSIVE METABOLIC PANEL Routine 07/02/2024 9:09 AM CDT from Last 3 Months Results * CBC MIXED CELL DIFFERENTIAL (07/02/2024 3:55 PM CDT) Blood Mychal Wilcox MD HEMATOLOGY ORDERABLES Final Res ult * COMPREHENSIVE METABOLIC PANEL (07/02/2024 9:09 AM CDT) Blood us Mychal Wilcox MD CHEMISTRY ORDERABLES Final Resu lt from Last [address] [place] [address] MEDICARE PART A AND B [facility]
[2024-08-20 09:24] LABS: Estimated Glomerular Filt Rate > 60
== END 2024-08-20 08:52 | disposition home or self-care (01) ==
PROVIDERS: PCP Family Medicine; Visit Provider Internal Medicine
DX: R74.8 Abnormal levels of other serum enzymes (principal)
CPT/HCPCS: 74177; Q9967

== ENCOUNTER 2024-08-27 10:23 | Outpatient (CLI) | payer MEDICARE, OTHER, SELFPAY ==
[2024-08-27 10:58] LABS: Hematocrit 36.4 % (37.0-47.0); Hemoglobin 12.5 g/dL (12.0-15.0); Mean Corpuscular HGB Conc 34.3 g/dl (32-36); Mean Corpuscular Hemoglobin 31.2 pg (26-34); Mean Corpuscular Volume 90.8 fl (80-100); Mean Platelet Volume 9.5 fl (7.4-10.4); Platelet Count Result 229 k/mm3 (150-375); Red Blood Count 4.01 M/mm3 (4.2-5.4); Red Cell Distribution Width 11.9 % (11.5-14.5)
--- OUTSIDE RECORDS SUMMARY | 2024-08-27 11:35 | XMS_ITS | Clinical Summary ---
[facility] Address [address] [place] [address] Care Team Providers Care Reading Interventionist Name Role Phone Trang Sevilla MD Primary Care Provider Allergies No known active allergies Medications levothyroxine [...] Encounters Date Type Department Care Team Description 08/27/2024 10:00 AM CDT Office Visit [facility] Oncology and Hematology - [place] [address] [facility] [address] [place] [address] Mychal Wilcox MD Iron overload (Primary Dx) 08/01/2024 External Device Data STL ABSTRACTION Provider, Abstract 07/31/2024 External Device Data STL ABSTRACTION Provider, Abstract 07/30/2024 External Device Data STL ABSTRACTION Provider, Abstract 07/09/2024 External Device Data STL ABSTRACTION Provider, Abstract 07/09/2024 External Device Data STL ABSTRACTION Provider, Abstract 07/09/2024 External Device Data STL ABSTRACTION Provider, Abstract 07/03/2024 Orders Only [facility] Oncology and Hematology - [place] [address] [place] [address] Mychal Wilcox MD 07/02/2024 1:30 PM CDT Office Visit [facility] Oncology and Hematology - [place] [address] [place] [address] Rajni Santos MD Elevated liver enzymes (Primary Dx); Anemia, chronic disease 07/02/2024 Orders Only [facility] Oncology and Hematology - [place] [address] [place] [phone] Mychal Wilcox MD from Last 3 Months [...] Date Smoking Tobacco: Never Smokeless Tobacco: Never Tobacco Cessation:Counseling Given: Not Answered Alcohol Use Standard Drinks/Week Comments Yes 0 (1 standard drink = 0.6 oz pur e alcohol) Everyday Comments Unknown Sex and Gender Information Value Date Recorded Sex Assigned at Not on file 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 Gender Identity Not on file Sexual Orientation Not on file Last Filed Vital Signs Vital Sign Reading Time Taken Comments Blood Pressure 129/72 08/27/2024 9:31 AM CDT Pulse 75 08/27/2024 9:31 AM CDT Temperature 36.4 C (97.5 F) 08/27/2024 9:31 AM CDT Respiratory Rate 15 08/27/2024 9:31 AM CDT Oxygen Saturation 96% 08/27/2024 9:31 AM CDT Inhaled Oxygen Concentration - - Weight 72.6 kg (160 lb) 08/27/2024 9:31 AM CDT Height 162.6 cm (5' 4) 07/02/2024 1:20 PM CDT Body Mass Index 27.46 07/02/2024 1:20 PM CDT Plan of Treatment Upcoming Encounters Date Type Department Care Team (Late st Contact Info) Description 09/10/2024 4:30 PM CDT Telephone Check Up [facility] Oncology and Hematology - [place] [address] [facility] [address] [place] [address] Mychal Wilcox MD [address] [facility] [address] [place] [address] Health Maintenance Due Date Last [...] METABOLIC PANEL (07/02/2024 9:09 AM CDT) Blood Mychal Wilcox MD CHEMISTRY ORDERABLES Final Resu lt from Last 3 Months Insurance MEDICARE PART A AND B [employer] [facility] [place] [facility] [place] [address] Care Teams Reading Interventionist Relationship Specialty Start Date End Date Trang Sevilla MD [facility] [place] [address] PCP - General Family Practice 08/27/24
--- OUTSIDE RECORDS SUMMARY | 2024-08-27 11:35 | XMS_ITS | Encounter Summary ---
Author Organization [facility] ELIANMicrotask [facility] Address [address] [place] [address] Care Team Providers Care Speed Belt Sander Name Role Phone Trang Sevilla MD Primary Care Provider Reason for Visit * Reason Comments Follow Up Encounter Details Date Type Department Care Team (Late st Contact Info) Description 08/27/2024 10:00 AM CDT Office Visit 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 Sex: female : 1945 DIAGNOSIS Elevated ferritin CURRENT TREATMENT Expectant TREATMENT HISTORY SUBJECTIVE Patient came into the office for follow-up visit. She denies any chest pain and shortness of breath. No bleeding and bruising. Weight and appetite stable. No other new complaints. Review of system Constitutional: Patient did not mention fevers, sweats, fatigue, malaise, weight loss HEENT: Patient did not mention sinus congestion, hearing or vision problems Respiratory: Patient did not mention cough, dyspnea, wheeze Cardiovascular: Patient did not mention chest pain, exertional chest pressure/discomfort, nausea, syncope, shortness of breath GI: Patient did not mention constipation, diarrhea, dsyphagia, reflux symptoms, vomiting, melena : Patient did not mention dysuria, frequency, incontinence, urgency Integumentary system: no lymphadenopathy, sweats, flushing Musculoskeletal: Patient not mention: myalgia, arthralgia Neurological: Patient did not mention blurry or disturbed vision, numbness/weakness, dizziness Skin: No lumps, bumps or rashes. Objective: Vital signs in last 24 hours: As per nursing note Exam: General appearance: alert, cooperative, no distress, appears stated age Head: normocephalic, without obvious abnormality, atraumatic Eyes: conjunctivae/corneas clear, EOM's intact Ears: normal external ear canals AU Nose: Nares normal. Septum midline. Mucosa normal. No drainage or sinus tenderness Throat: Lips, mucosa, and tongue normal. Teeth and gums normal Neck: supple, symmetrical, trachea midline. Lungs: clear to auscultation bilaterally Heart: regular rate and rhythm, S1, S2 normal, no murmur, click, rub or gallop Abdomen: soft, non-tender. Bowel sounds normal. No masses, No organomegaly Extremities: extremities normal, atraumatic, no cyanosis or edema Skin: Skin color, texture, turgor normal. No rashes or lesions Lymph nodes: No lymphadenopathy Neuro: No obvious focal deficit PATH LABS Labs from July 02 showed creatinine 0.7 B12 486 iron 112 saturation 39 ferritin 450 AST 49 WBC 7.6hemoglobin 12.3 platelet 211,000 @IMAGEIMP@ Assessment: Plan: There are no active problems to display for this patient. Elevated serum ferritin. Patient informed me that she used to drink 1 or 2 martini every night withthe dinner but discontinued in June when seen in the office. Labs showed elevated ferritin of 450.I will repeat labs including iron studies and CMP today and will call her back in 2 weeks. Based onthe repeat lab we will decide about hemochromatosis genetic testing. I recommended regular exerciseweight loss and abstinence from drinking. ? TOBACCO COUNSELING She is not a tobacco/nicotine user. 08/27/2024 Mychal Wilcox MD documented in this encounter Plan of Treatment Upcoming Encounters Date Type Department Care Team (Late st Contact Info) Description 09/10/2024 4:30 PM CDT Telephone Check Up [facility] Oncology and Hematology - [place] [address] [place] [address] [address] Mychal Wilcox MD [address] [facility] [address] [place] [address] Scheduled Orders Name Type Priority Associated Diagnoses Orde r Schedule CBC WITHOUT DIFFERENTIAL Lab Stat Iron overload Expected: 08/27/2024, Expires: 08/27/2025 COMPREHENSIVE METABOLIC PANEL Lab Stat Iron overload Expected: 08/27/2024, Expires: 08/27/2025 FERRITIN Lab Routine Iron overload Expected: 08/27/2024, Expires: 08/27/2025 IRON, TIBC, AND PERCENT SATURATION Lab Routine Iron overload Expected: 08/27/2024, Expires: 08/27/2025 documented as of this encounter Visit Diagnoses Diagnosis Iron overload- Primary Other disorders of iron metabolism documented in this encounter Care Teams Speed Belt Sander Relationship Specialty Start Date End Date Trang Sevilla MD [address] [facility] [place] [address] PCP - General Family Practice 08/27/24 documented as of this encounter
[2024-08-27 13:04] LABS: Iron 98 ug/dL (37-170)
[2024-08-27 13:06] LABS: Cholesterol 172 mg/dL (0-200); HDL Direct 87 mg/dL; Triglycerides 78 mg/dL (<150)
[2024-08-27 13:07] LABS: Alanine Aminotransferase 16 U/L (6-35); Albumin Level 4.5 g/dL (3.5-5.1); Alkaline Phosphatase 72 U/L (38-126); Anion Gap 9 mmol/L (4-12); Aspartate Amino Transferase 47 U/L (14-36); Bilirubin,Total 0.6 mg/dL (0.2-1.3); Blood Urea Nitrogen 12 mg/dL (7-17); Calcium 9.6 mg/dL (8.4-10.2); Carbon Dioxide 24 mmol/L (22-30); Chloride 100 mmol/L (98-107); Estimated Glomerular Filt Rate > 60; Glucose 96 mg/dL (65-110); Potassium 4.5 mmol/L (3.4-5.0); Sodium 133 mmol/L (137-145); Total Protein 7.8 g/dL (6.3-8.2)
[2024-08-27 13:14] LABS: Percent Iron Saturation 35 % (20-50)
[2024-08-27 13:17] LABS: LDL Cholesterol Direct 51 mg/dL
[2024-08-27 13:24] LABS: Free T4 Free Thyroxine 1.71 ng/dL (0.78-2.19)
[2024-08-27 13:46] LABS: Thyroid Stimulating Hormone 0.934 uIU/mL (0.465-4.680)
== END 2024-08-27 10:24 | disposition home or self-care (01) ==
PROVIDERS: PCP Family Medicine; Referring Provider Nurse Practitioner Family; Visit Provider Internal Medicine Hematology & Oncology
DX: E03.9 Hypothyroidism, unspecified (principal); E78.5 Hyperlipidemia, unspecified; E83.19 Other disorders of iron metabolism
CPT/HCPCS: 36415; 80053; 80061; 82306; 82728; 83540; 83550; 84439; 84443; 85027

== ENCOUNTER 2024-12-27 08:31 | Outpatient (CLI) | payer MEDICARE, OTHER, SELFPAY ==
--- OUTSIDE RECORDS SUMMARY | 2024-12-27 08:40 | XMS_ITS | Clinical Summary ---
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 Gender Identity Not on file Sexual Orientation [...] Care Team (Late st Contact Info) Description 01/06/2025 2:15 PM CDT Office Visit [facility] Oncology and Hematology - [place] [address] [facility] [address] [address] Mychal Wilcox MD [address] [facility] [address] [place] [address] Health Maintenance Due Date Last Done Comments DTAP/TDAP/TD VACCINES (1 - Tdap) 1965 PNEUMOCOCCAL VACCINE 50+ YEARS (1 of 1 - PCV) 03/07/19 96 ZOSTER VACCINE (1 of 2) 1996 OSTEOPOROSIS SCREENING 2011 RSV VACCINE (60+ or ) (1 - 1-dose 75+ series) 2021 INFLUENZA VACCINE (#1) 2024 Insurance MEDICARE PART A AND B [facility] [place] [address] Care Teams Helium Arc Welder Relationship Specialty Start Date End Date Trang Sevilla MD [address] [facility] [place] [address] PCP - General Family Practice 08/27/24
[2024-12-27 12:48] LABS: Hematocrit 36.0 % (37.0-47.0); Hemoglobin 11.6 g/dL (12.0-15.0); Immature Granulocyte Percent A 0.0 % (0-0.5); Lymphocytes Absolute Auto 2.08 K/mm3 (0.9-3.2); Mean Corpuscular HGB Conc 32.2 g/dl (32-36); Mean Corpuscular Hemoglobin 29.7 pg (26-34); Mean Corpuscular Volume 92.1 fl (80-100); Nucleated Red Blood Cells Absolute Auto 0.000 K/mm3 (0.0-0.012); Nucleated Red Blood Cells Perc 0.0 % (0.0-0.2); Platelet Count Result 234 k/mm3 (150-375); Red Blood Count 3.91 M/mm3 (4.2-5.4); White Blood Count 5.2 K/mm3 (4.5-10.0)
[2024-12-27 12:57] LABS: Iron 92 ug/dL (37-170)
[2024-12-27 13:05] LABS: Alanine Aminotransferase 12 U/L (6-35); Albumin Level 4.3 g/dL (3.5-5.1); Alkaline Phosphatase 73 U/L (38-126); Anion Gap 6 mmol/L (4-12); Aspartate Amino Transferase 42 U/L (14-36); Bilirubin,Total 0.5 mg/dL (0.2-1.3); Blood Urea Nitrogen 13 mg/dL (7-17); Calcium 9.5 mg/dL (8.4-10.2); Carbon Dioxide 27 mmol/L (22-30); Chloride 98 mmol/L (98-107); Estimated Glomerular Filt Rate > 60; Glucose 91 mg/dL (65-110); Potassium 4.9 mmol/L (3.4-5.0); Sodium 131 mmol/L (137-145); Total Protein 7.6 g/dL (6.3-8.2)
[2024-12-27 13:30] LABS: Percent Iron Saturation 37 % (20-50)
[2024-12-27 14:09] LABS: Ferritin 503.00 ng/mL (11.1-264)
== END 2024-12-27 08:32 | disposition home or self-care (01) ==
PROVIDERS: PCP Family Medicine; Visit Provider Internal Medicine Hematology & Oncology
DX: E83.19 Other disorders of iron metabolism (principal)
CPT/HCPCS: 36415; 80053; 82728; 83540; 83550; 85025

== ENCOUNTER 2025-01-06 14:42 | Outpatient (CLI) | payer MEDICARE, OTHER, SELFPAY ==
--- OUTSIDE RECORDS SUMMARY | 2025-01-06 14:15 | XMS_ITS | Encounter Summary ---
Author Organization [facility] ELIANKongZhong Gideon [facility] Address [address] [place] [address] Care Team Providers Care Case Advocate Name Role Phone Trang Sevilla MD Primary Care Provider Reason for Referral * Laboratory Services (Routine) - Open Specialty Diagnoses / Procedures Referred By Contac t Referred To Contact Diagnoses Iron overload Procedures HEMOCHROMATOSIS GENOTYPE Mychal Wilcox MD [address] [facility] [address] [place] [address] Phone: tel: fax: Referral ID Status Reason Start Date Expiration Date Visits Re quested Visits Authorized [id number] Open 01/06/2025 02/06/2026 1 1 Reason for Visit * Reason Comments Follow Up Encounter Details Date Type Department Care Team (Late st Contact Info) Description 01/06/2025 2:15 PM CDT Office Visit [facility] Oncology and Hematology - [place] [address] [facility] [address] [place] [address] Mychal Wilcox MD [facility] [address] [place] [address] Iron overload (Primary Dx); Anemia, chronic disease Social History Tobacco Use Types Packs/Day Years Used Date Smoking Tobacco: Never Smokeless Tobacco: Never Tobacco Cessation:Counseling Given: Not Answered Alcohol Use Standard Drinks/Week Comments Yes 0 (1 standard drink = 0.6 oz pur e alcohol) Everyday Comments Unknown Sex and Gender Information Value Date Recorded Sex Assigned at Not on file 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 Gender Identity Not on file Sexual Orientation Not on file documented as of this encounter Last Filed Vital Signs Vital Sign Reading Time Taken Comments Blood Pressure 139/71 01/06/2025 2:01 PM CDT Pulse 61 01/06/2025 2:01 PM CDT Temperature 36.1 C (96.9 F) 01/06/2025 2:01 PM CDT Respiratory Rate 15 01/06/2025 2:01 PM CDT Oxygen Saturation 98% 01/06/2025 2:01 PM CDT Inhaled Oxygen Concentration - - Weight 68.8 kg (151 lb 9.6 oz) 01/06/2025 2:01 P M CDT Height - - Body Mass Index 26.02 07/02/2024 1:20 PM CDT documented in this encounter Progress Notes * Mychal Wilcox MD - 01/06/2025 2:10 PM CDT HEMATOLOGY / ONCOLOGY PROGRESS NOTE Patient Identification: Name: Ai Pisano Age: 79 y.o. Sex: female : 1945 DIAGNOSIS Elevated ferritin CURRENT TREATMENT Expectant TREATMENT HISTORY SUBJECTIVE Patient came to the office for follow-up visit. She has lost another 9 pound weight but remains tired and fatigued. No bleeding and bruising. No chest pain shortness of breath. She has not been drinking any alcohol for a long time. No other new complaints. Review of system Constitutional: Patient did not mention fevers, sweats, tiredness and fatigue, 9 pound weight loss HEENT: Patient did not mention [...] dizziness Skin: No lumps, bumps or rashes. 12 review of system was reviewed Objective: Vital signs in last 24 hours: [...] No lymphadenopathy Neuro: No obvious focal deficit Exam as above PATH LABS Labs from July 02 showed creatinine 0.7 B12 486 iron 112 saturation 39 ferritin 450 AST 49 WBC 7.6hemoglobin 12.3 platelet 211,000 Labs from August 27 showed AST 47 iron 98 saturation 35 ferritin 433 hemoglobin 12.5 Labs from December 27 showed sodium 131 creatinine 0.8 bilirubin 0.5 AST 42 iron 92 saturation 37 ferritin 503 hemoglobin 11.6 MCV 92.1 Assessment: Plan: There are no active problems to display for this patient. Elevated serum ferritin. Hemochromatosis genetic testing was not initially done as the etiology foriron or low was alcohol consumption. She has quit drinking more than 6 months ago. Patient has quit drinking more than 6 months ago but the ferritin remains elevated. I will order the hemochromatosis genetic testing today. I will call her next week. Anemia. I will check soluble transferrin receptor B12 and folic acid level. No need for bone marrowbiopsy testing at this time. Phone visit in 1 week 01/06/2025 Mychal Wilcox MD Patient's identity confirmed yes Patient gave verbal consent to have these services billed to their insurance and expressed understanding that co-insurance and deductible may apply: yes Patient was located at home. This encounter was completed via two-way synchronous audio only communication. Video technology available to provider, but patient not capable of, or doesn't consent to, use of video. Time spent in discussion with patient: 15 minutes. documented in this encounter Plan of Treatment Upcoming Encounters Date Type Department Care Team (Late st Contact Info) Description 01/14/2025 4:30 PM PERFORMANCE IMPROVEMENT COORDINATOR Telephone Check Up [facility] Oncology and Hematology - [place] [address] [facility] [address] [place] [address] Mychal Wilcox MD [address] [facility] [address] [place] [address] Scheduled Orders Name Type Priority Associated Diagnoses Orde r Schedule HEMOCHROMATOSIS GENOTYPE Lab Routine Iron overload Ordered: 01/06/2025 VITAMIN B12 AND FOLATE Lab Routine Anemia, chronic disease Expected: 01/06/2025, Expires: 01/06/2026 METHYLMALONIC ACID Lab Routine Anemia, chronic disease Expected: 01/06/2025, Expires: 01/06/2026 TRANSFERRIN RECEPTOR TFR SOLUBLE Lab Routine Anemia, chronic disease Expected: 01/06/2025, Expires: 01/06/2026 documented as of this encounter Visit Diagnoses Diagnosis Iron overload- Primary Other disorders of iron metabolism Anemia, chronic disease Anemia of other chronic disease documented in this encounter Care Teams Case Advocate Relationship Specialty Start Date End Date Trang Sevilla MD [address] [facility] [place] [address] PCP - General Family Practice 08/27/24 documented as of this encounter
--- OUTSIDE RECORDS SUMMARY | 2025-01-06 16:23 | XMS_ITS | Clinical Summary ---
Author Organization [facility] Aftab bucio Gersondiamond Address [address] [place] [address] Care Team Providers Care Bag Press Operator Name Role Phone Trang Sevilla MD Primary [...] Encounters Date Type Department Care Team Description 01/06/2025 2:15 PM CDT Office Visit [facility] Oncology and Hematology - [place] [address] [place] [address] Mychal Wilcox MD Iron overload (Primary Dx); Anemia, chronic disease 12/31/2024 External Device Data STL ABSTRACTION Provider, Abstract 12/31/2024 Orders Only [facility] Oncology and Hematology - [place] [address] [place] [address] Mychal Wilcox MD 11/12/2024 External Device Data STL ABSTRACTION Provider, [...] on file 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 Gender Identity Not on file Sexual [...] oz) 01/06/2025 2:01 P M CDT Height 162.6 cm (5' 4) 07/02/2024 1:20 PM CDT Body Mass Index 26.02 07/02/2024 1:20 PM CDT Plan of Treatment Upcoming Encounters Date Type Department Care Team (Late st Contact Info) Description 01/14/2025 4:30 PM SITE SUPERVISING TECHNICAL OPERATOR Telephone Check Up [facility] Oncology and Hematology - [place] [address] [facility] [address] [place] [address] Mychal Wilcox MD [address] [facility] [address] [place] [address] Health Maintenance Due Date Last Done Comments DTAP/TDAP/TD VACCINES (1 - Tdap) 1965 Traditional Medicare (ACO) Annual Wellness Visit 03/07 PNEUMOCOCCAL VACCINE 50+ YEARS (1 of 1 - PCV) 03/07/19 96 ZOSTER VACCINE (1 of 2) 1996 OSTEOPOROSIS SCREENING 2011 RSV VACCINE (60+ or ) (1 - 1-dose 75+ series) 2021 INFLUENZA VACCINE (#1) 2024 Procedures Procedure Name Priority Date/Time Associated Diagnosis Comments COMPREHENSIVE METABOLIC PANEL Routine 12/27/2024 12:34 PM CDT from Last 3 Months Results * COMPREHENSIVE METABOLIC PANEL (12/27/2024 12:34 PM CDT) Blood us Mychal Wilcox MD CHEMISTRY ORDERABLES Final Resu lt from Last 3 Months Insurance MEDICARE PART A AND B [facility] Care Teams Bag Press Operator Relationship Specialty Start Date End Date Trang Sevilla MD [address] [facility] [address] [facility] [place] [address] PCP - General Family Practice 08/27/24
[2025-01-06 17:42] LABS: Vitamin B12 558.0 pg/mL (239-931)
== END 2025-01-06 14:43 | disposition home or self-care (01) ==
LOC: ANHLAB 14:43
PROVIDERS: PCP Family Medicine; Visit Provider Internal Medicine Hematology & Oncology
DX: E83.19 Other disorders of iron metabolism (principal); D63.8 Anemia in other chronic diseases classified elsewhere
CPT/HCPCS: 36415; 81256; 82607; 82746; 83921; 84238